=== PATIENT | male | born 1980 | race Two or more races ===

== ENCOUNTER 2021-08-06 23:57 | Inpatient (IN) | payer OTHER ==
[~2021-08-06] VITALS: Ht 172.7 cm; Wt 197.0 kg
[2021-08-07] VITALS (14 sets, daily range): BP systolic 50–157; BP diastolic 13–90
[2021-08-07 01:20] LABS: Hematocrit 39.4 % (41.0-53.0); Hemoglobin 13.3 g/dL (13.5-17.5); Mean Corpuscular Hemoglobin 27.4 pg (28.0-32.0); Mean Corpuscular Hgb Conc. 33.6 g/dL (32.0-36.0); Mean Corpuscular Volume 81.3 fL (80.0-100.0); Red Blood Cells 4.85 10^6/uL (4.5-5.90); Red Cell Distribution Width 14.8 % (11.8-14.3); White Blood Cell 13.5 10^3/uL (4.4-10.8)
[2021-08-07 01:25] LABS: Basophils % (manual) 0 (0.0-2.0); Blast Cells 0; Eosinophils % (manual) 0 (0-7); Promyelocytes % 0; Reactive Lymphocytes 0
[2021-08-07] MEDS ORDERED: ACETAMINOPHEN 325 MG TAB PO ONE (01:30)
[2021-08-07] MEDS ORDERED: SODIUM CHLORIDE 0.9% 1,000 ML IV ONE ×2 (01:30)
[2021-08-07 01:33] LABS: Albumin 2.4 g/dL (3.4-5.0); BUN/Creatinine Ratio 7.6; Calcium 8.2 mg/dL (8.5-10.1); Potassium 3.5 mmol/L (3.5-5.1)
[2021-08-07 01:35] LABS: Lactic Acid w/Reflex 3.3 mmol/L (0.4-2.0)
[2021-08-07 01:36] LABS: Bilirubin, Total 1.2 mg/dL (0.2-1.0); Total Protein 7.2 g/dL (6.4-8.2)
[2021-08-07 01:45] LABS: Band Neutrophils % (manual) 48; Lymphocytes % (manual) 9 (10.0-50.0); Metamyelocytes % 1; Monocytes % (manual) 1 (0-12); Myelocytes % 4
[2021-08-07] MEDS ORDERED: ONDANSETRON HCL 4 MG/2 ML VIAL ONE (07:44)
[2021-08-07] MEDS ORDERED: MORPHINE SULFATE 4 MG/ML SYR/VIAL ONE (07:44)
[2021-08-07] MEDS ORDERED: MORPHINE SULFATE 4 MG/ML SYR/VIAL IV ONE (07:45)
[2021-08-07] MEDS ORDERED: ONDANSETRON HCL 4 MG/2 ML VIAL IV ONE (07:45)
[2021-08-07] MEDS ORDERED: HYDROmorphone HCL 2 MG/ML VL/or syr IV ONE ×2 (08:15→10:15)
[2021-08-07] MEDS ORDERED: VANCOMYCIN 1GM/250ML 250 ML IV ONE (09:45)
[2021-08-07] MEDS ORDERED: PIPERACILLIN-TAZOB 3.375GM 100 ML IV ONE (09:45)
[2021-08-07] MEDS ORDERED: LORazepam 2MG/ML-1ML VIAL IV ONE (10:15)
[2021-08-07] MEDS ORDERED: ONDANSETRON HCL 4 MG/2 ML VIAL IV PRN (11:45)
[2021-08-07] MEDS ORDERED: HYDROcodone-ACET 10/325MG TAB PO PRN (11:45)
[2021-08-07] MEDS ORDERED: D5W/SOD CHL 0.45% 1,000 ML IV ONE (11:45)
[2021-08-07] MEDS ORDERED: NOREPINEPHRINE 8 MG/250ML KIT 250 ML IV ONE (12:25)
[2021-08-07] MEDS ORDERED: LIDOCAINE HCL 2 % INJ 2ML MPF NEB ONE (13:00)
[2021-08-07] MEDS ORDERED: ETOMIDATE (2MG/ML) 20ML VIAL IV ONE (13:00)
[2021-08-07] MEDS ORDERED: LIDOCAINE HCL 5 % TOP OINT 35 GM TOP ONE (13:00)
[2021-08-07] MEDS ORDERED: MIDAZOLAM DRIP 50 mg/50mL 50 ML IV SCH (13:00)
[2021-08-07] MEDS ORDERED: MIDAZOLAM HCL 2MG/2ML 2ml VIAL (1mg/ml) IV ONE (13:00)
[2021-08-07] MEDS ORDERED: ROCURONIUM 10MG/ML 10ML VIAL IV ONE (13:00)
[2021-08-07] MEDS ORDERED: NOREPINEPHRINE 8 MG/250ML KIT 250 ML IV SCH (13:00)
[2021-08-07] MEDS ORDERED: MIDAZOLAM DRIP 50 mg/50mL 50 ML IV ONE (13:05)
[2021-08-07] MEDS ORDERED: fentaNYL Drip 2500mCg/250mlNS 250 ML IV ONE (13:07)
[2021-08-07] MEDS ORDERED: fentaNYL Drip 2500mCg/250mlNS 250 ML IV SCH (14:00)
[2021-08-07] MEDS ORDERED: PIPERACILLIN-TAZOB 3.375GM 100 ML IV SCH (14:00)
[2021-08-07] MEDS ORDERED: PHENYLEPHRINE IV 250 ML IV ONE (15:40)
[2021-08-07] MEDS ORDERED: PHENYLEPHRINE IV 250 ML IV SCH (15:45)
[2021-08-07] MEDS ORDERED: SODIUM CHLORIDE 0.9% 1,000 ML IV SCH (15:45)
[2021-08-07] MEDS ORDERED: SODIUM BICARBONATE 8.4 % INJ 50ML VIAL IV ONE ×2 (16:14→16:15)
[2021-08-07] MEDS ORDERED: SODIUM BICARBONATE 8.4% INJ 50ML SYRINGE ONE (17:34)
[2021-08-07] MEDS ORDERED: VANCOMYCIN 1GM/250ML 250 ML IV SCH (18:00)
[2021-08-08] MEDS ORDERED: SODIUM BICARBONATE 8.4% INJ 50ML SYRINGE IV ONE (01:09)
[2021-08-08] MEDS ORDERED: EPINEPHrine HCL 1 MG/10 ML SYRG IV ONE (01:09)
[2021-08-08] MEDS ORDERED: CALCIUM CHLOR(10%) 100MG/ML 10ML SYRINGE IV ONE (01:09)
[2021-08-08] MEDS ORDERED: ENOXAPARIN SOD 40 MG/0.4 ML SYRINGE SC SCH (10:00)
== END 2021-08-07 17:29 | DRG 871 ==
LOC: EEVIPCON 23:57 → EDBD 23:57 → ER 23:57 → OVERFLOW 08-07 11:39 → ICU WEST 08-07 13:39
PROVIDERS: ADMIT Internal Medicine; ATTEND Internal Medicine
PROC: 5A1935Z Respiratory Ventilation, Less than 24 Consecutive Hours (ICD-10-PCS; principal; 2021-08-07)
PROC: 0BH17EZ Insertion of Endotracheal Airway into Trachea, Via Natural or Artificial Opening (ICD-10-PCS; 2021-08-07)
DX: A41.9 Sepsis, unspecified organism (principal); J96.01 Acute respiratory failure with hypoxia; J96.02 Acute respiratory failure with hypercapnia; R65.21 Severe sepsis with septic shock; Z68.44 Body mass index [BMI] 60.0-69.9, adult; N10 Acute pyelonephritis; Z20.822 Contact with and (suspected) exposure to COVID-19; E66.01 Morbid (severe) obesity due to excess calories; K59.00 Constipation, unspecified
CPT/HCPCS: 36415; 36600; 71045; 80053; 82805; 82962; 83605; 83690; 83880; 84484; 85007; 85027; 87070; 87077; 87081; 87186; 87205; 87804; 93005; 94003; 94640; 96361; 96374; 96375; G0378; J2250; J2405; J2543